=== PATIENT | male | born 1970 | race Caucasian/White ===

== ENCOUNTER 2020-07-30 21:46 | Emergency (ER) | payer SELFPAY ==
[~2020-07-30] VITALS: Ht 165.1 cm; Wt 83.9 kg
[2020-07-30 21:54] VITALS: BP 131/63
--- NOTE | 2020-07-30 22:00 | NUR ---
Alfredo ross in [facility] - 07/30/20 at 2201 by QUINCY PT TAKEN TO BED 5
--- NOTE | 2020-07-30 22:01 | NUR ---
PT TAKEN TO BED 6
--- NOTE | 2020-07-30 22:03 | NUR ---
50 Y/O MALE PATIENT BIB SELF FOR C/O ABD PAIN X 1 DAY. PATIENT STATES PAIN IS EPIGASTRIC DENIES N/V/D. PT STATES 10/ PAIN. ABD SOFT, TENDER TO TOUCH. MEDHX: DENIES NKA
--- NOTE | 2020-07-30 22:24 | NUR ---
Dr. Reagan examining patient.
[2020-07-30] MEDS ORDERED: ONDANSETRON 4 MG/2 ML VIAL IVP ONE (22:30)
[2020-07-30] MEDS ORDERED: NACL 0.9% 1,000 ML IV ONE (22:30)
[2020-07-30] MEDS ORDERED: MORPHINE SULFATE 2 MG/ML SYR IVP ONE (22:30)
[2020-07-30] MEDS ORDERED: PANTOPRAZOLE 40 MG INJ VIAL IVP ONE (22:30)
--- NOTE | 2020-07-30 22:40 | NUR ---
LAB AT BEDSIDE
[2020-07-30 22:49] LABS: BASOPHILS % (AUTO) 0.3 % (0.0-2.0); HEMATOCRIT 43.2 % (36-52); HEMOGLOBIN 14.9 g/dL (12.0-18.0); LYMPHOCYTES # (AUTO) 1.4 K/uL (2.0-11.5); LYMPHOCYTES % (AUTO) 19.4 % (20.5-51.1); MEAN CORPUSCULAR HEMOGLOBIN 31 pg (27-31); MEAN CORPUSCULAR HGB CONC 35 g/dL (33-37); MEAN CORPUSCULAR VOLUME 88.4 fL (80-94); MONOCYTES # (AUTO) 0.8 K/uL (0.8-1.0); MONOCYTES % (AUTO) 11.4 % (1.7-9.3); NEUTROPHILS % (AUTO) 68.9 % (42.2-75.2); PLATELET COUNT (AUTO) 192 K/uL (140-450); RED BLOOD CELL COUNT(AUTO) 4.88 MIL/uL (4.20-6.10); RED CELL DISTRIBUTION WIDTH 13.3 % (11.6-13.7); WHITE BLOOD COUNT (AUTO) 7.2 K/uL (4.8-10.8)
--- NOTE | 2020-07-30 22:58 | NUR ---
PT TAKEN TO CT SCAN VIA W/C
[2020-07-30 23:05] LABS: ALBUMIN 3.3 g/dL (3.4-5.0); ANION GAP 15.1 (8-16); CARBON DIOXIDE 23.9 mmol/L (21-32); TOTAL BILIRUBIN 0.5 mg/dL (0.0-1.0)
--- NOTE | 2020-07-30 23:08 | NUR ---
PT RETURN FROM CT
[2020-07-30] MEDS ORDERED: POTASSIUM CHLORIDE 10 MEQ TABER PO ONE (23:35)
[2020-07-30 23:49] LABS: APPEARANCE,URINE CLEAR (CLEAR); BILIRUBIN,URINE NEGATIVE (NEGATIVE); BLOOD, URINE TRACE-I (NEGATIVE); COLOR,URINE YELLOW (YELLOW); LEUKOCYTE ESTERASE ,URINE NEGATIVE (NEGATIVE); NITRITE, URINE NEGATIVE (NEGATIVE); UGLUCOSE NEGATIVE (NEGATIVE)
[2020-07-31 00:15] LABS: BARBITURATE, URINE NEGATIVE ng/ml (NEG <=200)
[2020-07-31 00:16] LABS: BENZODIAZEPINE, URINE NEGATIVE ng/mL (NEG <=200); CANNABINOID, URINE NEGATIVE ng/mL (NEG <=50); COCAINE, URINE NEGATIVE ng/mL (NEG <=300); OPIATE, URINE NEGATIVE ng/mL (NEG <=2000); PHENCYCLIDINE SCREEN,URINE NEGATIVE ng/mL (NEG <=25)
[2020-07-31 00:25] LABS: RBC,URINE 0-5 /HPF (0-5); WBC,URINE 0-5 /HPF (0-5)
[2020-07-31 00:46] VITALS: BP 130/65
--- NOTE | 2020-07-31 00:46 | NUR ---
Patient discharged with v/s stable. Written and verbal after care instructions given and explained. Patient alert, oriented and verbalized understanding of instructions. Ambulatory with steady gait. All questions addressed prior to discharge. ID band removed. Patient advised to follow up with PMD. Rx of PROTONIX given. Patient educated on indication of medication including possible reaction and side effects. Opportunity to ask questions provided and answered.
== END 2020-07-31 00:46 | disposition home or self-care (01) ==
LOC: MED 21:46
DX: R10.13 Epigastric pain (principal)
CPT/HCPCS: 36415; 74176; 80053; 80305; 81001; 83605; 83690; 84484; 85025; 93005; 96361; 96374; 96375; 99285; C9113; G0482; J2270; J2405; J7030

== ENCOUNTER 2022-10-19 18:14 | Emergency (ER) | payer MEDICAID, OTHER ==
[~2022-10-19] VITALS: Ht 167.6 cm; Wt 90.7 kg
[2022-10-19 18:22] VITALS: BP 159/99
[2022-10-19] MEDS ORDERED: KETOROLAC 30 MG/ML VIAL IM ONE (19:05)
[2022-10-19] MEDS ORDERED: IBUP-2213 PO (20:07)
== END 2022-10-19 20:35 | disposition home or self-care (01) ==
LOC: MED 18:14
DX: S93.401A Sprain of unspecified ligament of right ankle, initial encounter (principal); S80.02XA Contusion of left knee, initial encounter; Z79.1 Long term (current) use of non-steroidal anti-inflammatories (NSAID); W01.0XXA Fall on same level from slipping, tripping and stumbling without subsequent striking against object, initial encounter; Y93.39 Activity, other involving climbing, rappelling and jumping off; Y92.89 Other specified places as the place of occurrence of the external cause; Y99.8 Other external cause status
CPT/HCPCS: 29505; 73562; 73610; 73630; 96372; 99284; J1885

== ENCOUNTER 2022-11-19 20:07 | Emergency (ER) | payer MEDICAID ==
[~2022-11-19] VITALS: Ht 167.6 cm; Wt 92.5 kg
[~2022-11-19 20:07] MED LIST: IBUP-2213 PO
[2022-11-19 20:47] VITALS: BP 144/90
[2022-11-19] MEDS ORDERED: IBUPROFEN 600 MG TAB PO ONE (22:20)
--- NOTE | 2022-11-19 22:20 | NUR ---
Dr. Maher examining patient.
[2022-11-19] MEDS ORDERED: IBUP-2213 PO (22:22)
[2022-11-19] MEDS ORDERED: LID5T TP (22:22)
[2022-11-19] MEDS ORDERED: ACET-9527 PO (22:22)
[2022-11-19 22:58] VITALS: BP 138/88
--- NOTE | 2022-11-19 22:58 | NUR ---
Patient discharged with v/s stable. Written and verbal after care instructions given and explained. Patient alert, oriented and verbalized understanding of instructions. Ambulatory with steady gait. All questions addressed prior to discharge. ID band removed. Patient advised to follow up with PMD. Rx of Ibuprofen, Deming and Lidocaine given. Patient educated on indication of medication including possible reaction and side effects. Opportunity to ask questions provided and answered.
== END 2022-11-19 22:58 | disposition home or self-care (01) ==
LOC: MED 20:07
DX: S83.8X1A Sprain of other specified parts of right knee, initial encounter (principal); X58.XXXA Exposure to other specified factors, initial encounter; Y93.89 Activity, other specified; Y92.89 Other specified places as the place of occurrence of the external cause; Y99.8 Other external cause status
CPT/HCPCS: 99283

== ENCOUNTER 2023-07-01 17:53 | Emergency (ER) | payer MEDICAID ==
[~2023-07-01] VITALS: Ht 160 cm; Wt 93.4 kg
[~2023-07-01 17:53] MED LIST changes: +ACET-9527 PO; +LID5T TP
[2023-07-01 19:53] VITALS: BP 147/89; PULSE 76; RESP 16; TEMP 98.5; O2SAT 97
[2023-07-01] MEDS ORDERED: IBUP-2213 PO (23:21)
[2023-07-01 23:30] VITALS: BP 147/89; PULSE 76; RESP 16; TEMP 98.5; O2SAT 97
== END 2023-07-01 23:30 | disposition home or self-care (01) ==
LOC: MED 17:53
DX: M25.561 Pain in right knee (principal); M25.562 Pain in left knee; Z79.899 Other long term (current) drug therapy
CPT/HCPCS: 73560; 99283